=== PATIENT | male | born 1965 | race Caucasian/White ===

== ENCOUNTER 2019-11-07 11:56 | Observation (INO) ==
[2019-11-07] MEDS ORDERED: Morphine Sulfate 2 MG/ML SYRINGE IVP ONE (12:16)
[2019-11-07] MEDS ORDERED: Ondansetron 4 MG/2 ML VIAL IVP ONE ×2 (12:16→13:53)
[2019-11-07] MEDS ORDERED: 0.9 % Sodium Chloride 1,000 ML IVC ONE (12:16)
[2019-11-07] MEDS ORDERED: Piperacillin/Tazobactam 3.375 GM in 0.9 % Sodium Chloride Mini Bag 100 ML IVPB ONE (12:43)
[2019-11-07] MEDS ORDERED: Ondansetron 4 MG/2 ML VIAL ONE (13:50)
[2019-11-07] MEDS ORDERED: Pantoprazole 40 MG VIAL IVP ONE (13:53)
[2019-11-07 14:49] LABS: Adenovirus Not Detected (Not Detect); Bordetella Pertussis Not Detected (Not Detect); Chlamydophila pneumoniae Not Detected (Not Detect); Coronavirus 229E Not Detected (Not Detect); Coronavirus HKU1 Not Detected (Not Detect); Coronavirus NL63 Not Detected (Not Detect); Coronavirus OC43 Not Detected (Not Detect); Human Metapneumovirus Not Detected (Not Detect); Human Rhinovirus/Enterovirus Not Detected (Not Detect); Influenza A Subtype 2009 H1 Not Detected (Not Detect); Influenza B Not Detected (Not Detect); Mycoplasma pneumoniae Not Detected (Not Detect); Parainfluenza Virus 1 Not Detected (Not Detect); Parainfluenza Virus 2 Not Detected (Not Detect); Parainfluenza Virus 3 Not Detected (Not Detect); Parainfluenza Virus 4 Not Detected (Not Detect); Respiratory Syncytial Virus Not Detected (Not Detect); SARS-CoV-2 Not Detected (Not Detect)
[2019-11-07] MEDS ORDERED: Ketorolac 15 MG/ML VIAL IVP PRN (17:09)
[2019-11-07] MEDS ORDERED: *HR* Promethazine 25 MG/ML VIAL IVP PRN (17:09)
[2019-11-07] MEDS ORDERED: Ondansetron 4 MG/2 ML VIAL IVP PRN (17:09)
[2019-11-07] MEDS: *HR* Heparin 5,000 UNIT/ML VIAL SQ SCH (17:34)
[2019-11-07] MEDS: 0.9 % Sodium Chloride 1,000 ML IVC SCH (17:35)
[2019-11-07] MEDS: Acetaminophen IV 1,000 MG/100 ML INFUS..BTL IVPB SCH (17:53)
[2019-11-07] MEDS: Piperacillin/Tazobactam 3.375 GM in 0.9 % Sodium Chloride Mini Bag 100 ML IVPB SCH (20:55)
[2019-11-08] MEDS: Acetaminophen IV 1,000 MG/100 ML INFUS..BTL IVPB SCH ×5 (00:04→23:29)
[2019-11-08] MEDS: 0.9 % Sodium Chloride 1,000 ML IVC SCH ×4 (01:50→23:28)
[2019-11-08] MEDS: Piperacillin/Tazobactam 3.375 GM in 0.9 % Sodium Chloride Mini Bag 100 ML IVPB SCH ×4 (05:03→23:30)
[2019-11-08] MEDS: *HR* Heparin 5,000 UNIT/ML VIAL SQ SCH ×2 (05:09→19:15)
[2019-11-08 07:18] LABS: INR 1.1; Prothrombin Time 12.9 Seconds (9.4-12.1)
[2019-11-08 07:32] LABS: Alanine Aminotransferase 11 Units/L (7-52); Albumin 3.5 g/dL (3.5-5.7); Albumin/Globulin Ratio 1.6 (1.1-2.2); Alkaline Phosphatase 48 Units/L (34-104); Aspartate Amino Transferase 11 Units/L (13-39); BUN/Creatinine Ratio 13 (6-26); Bilirubin,Direct 0.1 mg/dL (0.0-0.2); Bilirubin,Indirect 0.5 mg/dL (0.0-1.0); Bilirubin,Total 0.6 mg/dL (0.3-1.0); Blood Urea Nitrogen 15 mg/dL (6-20); Calcium 8.4 mg/dL (8.6-10.3); Carbon Dioxide 24 mEq/L (23-29); Chloride 106 mEq/L (98-107); Globulin 2.2 g/dL (2.4-3.5); Glucose 125 mg/dL (70-105); Magnesium 2.2 mg/dL (1.6-2.6); Osmolality,Calculated 286 (280-300); Potassium 3.5 mEq/L (3.5-5.1); Sodium 137 mEq/L (136-145); Total Protein 5.7 g/dL (6.4-8.9); eGFR For African Americans > 60 (> 60); eGFR For Non-African Americans > 60 (> 60)
[2019-11-08 07:40] LABS: Hematocrit 40.4 % (37.5-50.1); Mean Corpuscular HGB Conc 33.2 g/dL (31.6-35.5); Mean Corpuscular Hemoglobin 31.2 pg (28.0-33.3)
[2019-11-08 07:42] LABS: Basophils % 0.4 %; Eosinophils # 0.2 K/mcL (0.0-0.6); Eosinophils % 2.5 %; Hemoglobin 13.4 g/dL (12.9-16.9); Immature Granulocytes % 0.4 % (0-4); Lymphocytes # 0.8 K/mcL (0.6-4.6); Lymphocytes % 10.2 %; Monocytes # 0.5 K/mcL (0.0-1.3); Monocytes % 6.5 %; Platelet Count 125 K/mcL (140-400); Red Cell Distribution Width 12.6 % (11.5-14.5); White Blood Count 7.5 K/mcL (4.3-11.1)
[2019-11-08 08:06] LABS: Platelet Estimate Slight Decrease (Normal)
[2019-11-08] MEDS ORDERED: Pantoprazole 40 MG VIAL IVP SCH (09:00)
[2019-11-08] MEDS ORDERED: *HR* FentaNYL (PF) 100 MCG/2 ML VIAL ONE ×2 (10:13→14:45)
[2019-11-08] MEDS ORDERED: *HR* Succinylcholine 200 MG/10 ML VIAL IVP ONE (10:13)
[2019-11-08] MEDS ORDERED: Lidocaine -MPF 2% 2 ML VIAL ONE (10:13)
[2019-11-08] MEDS ORDERED: Dexamethasone 4 MG/ML VIAL ONE ×2 (10:13→14:17)
[2019-11-08] MEDS ORDERED: *HR* Propofol 200 MG/20 ML VIAL IVP ONE (10:13)
[2019-11-08] MEDS ORDERED: *HR* Rocuronium Bromide 50 MG/5 ML VIAL ONE (10:13)
[2019-11-08] MEDS ORDERED: Ondansetron 4 MG/2 ML VIAL ONE (10:13)
[2019-11-08] MEDS ORDERED: *HR* HYDROmorphone PF 0.5 MG/0.5 ML SYRINGE IVP PRN ×2 (10:46→15:48)
[2019-11-08] MEDS ORDERED: *HR* Promethazine 25 MG/ML VIAL IVP PRN ×3 (10:46→15:48)
[2019-11-08] MEDS ORDERED: *HR* Meperidine 25 MG/ML SYRINGE IVP PRN ×2 (10:46→15:48)
[2019-11-08] MEDS ORDERED: *HR* OxyCODONE Immed Rel 5 MG TABLET PO PRN ×2 (10:46→15:48)
[2019-11-08] MEDS ORDERED: Ondansetron 4 MG/2 ML VIAL IVP ONE ×2 (10:46→15:48)
[2019-11-08] MEDS ORDERED: Ketorolac 15 MG/ML VIAL IVP PRN (15:48)
[2019-11-08] MEDS ORDERED: Ondansetron 4 MG/2 ML VIAL IVP PRN (15:48)
[2019-11-09] MEDS: *HR* Heparin 5,000 UNIT/ML VIAL SQ SCH (05:06)
[2019-11-09] MEDS: Acetaminophen IV 1,000 MG/100 ML INFUS..BTL IVPB SCH (05:09)
[2019-11-09 06:47] VITALS: BP 136/88
[2019-11-09] MEDS: Piperacillin/Tazobactam 3.375 GM in 0.9 % Sodium Chloride Mini Bag 100 ML IVPB SCH (07:38)
[2019-11-09] MEDS: 0.9 % Sodium Chloride 1,000 ML IVC SCH (07:39)
[2019-11-09] MEDS ORDERED: Pantoprazole 40 MG VIAL IVP SCH (09:00)
== END 2019-11-09 10:27 | disposition home or self-care (01) ==
LOC: 3ANU 11:56 → EMEROOARM 11:56 → 3ANU 17:00
PROVIDERS: ADMIT Surgery; ATTEND Surgery